=== PATIENT | male | born 1995 | race African-American/Black ===

== ENCOUNTER 2022-01-17 22:51 | Emergency (ER) | payer OTHER ==
[~2022-01-17] VITALS: Ht 167.6 cm; Wt 70.3 kg
[2022-01-17 23:28] LABS: PLATELET COUNT 220 K/uL (142-355)
[2022-01-17 23:33] LABS: POTASSIUM 3.7 mmol/L (3.6-5.2)
[2022-01-18 00:35] VITALS: BP 122/72; TEMP 98.9
== END 2022-01-18 00:35 | disposition home or self-care (01) ==
LOC: ED 22:51
PROVIDERS: Emergency Medicine Emergency Medical Services
DX: R07.89 Other chest pain (principal)
CPT/HCPCS: 36415; 80053; 80307; 83735; 84484; 85027; 85379; 93005; 96360; 96374; 99284; J3490